=== PATIENT | female | born 2000 ===

== ENCOUNTER 2024-02-15 14:25 | Emergency (ER) | payer MEDICAID, SELFPAY ==
--- NOTE | 2024-02-15 14:51 | MHC.CARE ---
[facility] caponizer Philly called to report that they were sending a Pt into the [facility] Ed with the recommendation of [facility]. They reported Pt was assessed today and reported she intentionally overdosed on 4 pills of an unknown anti depressant that are prescribed to her mother 2-3 days ago. Pt did not report this overdose until today. Pt reported feeling depressed and hopeless. She stated that she is having thoughts to jump off a bridge and is self harming by carving her partners name into her skin. Pt has 2 prior suicide attempts per [facility] clinician however details are unknown. [facility]'s original disposition was [facility] level of care however they did not have beds and did not feel safe with Pt returning home. They will be sending an assessment over with [facility] as disposition.
[2024-02-15 15:03] VITALS: BP 130/82; O2SAT 96
[2024-02-15 15:04] VITALS: BMI 20.6
--- NOTE | 2024-02-15 15:12 | ECG_ITS ---
Test Reason : check qtc Blood Pressure : / mmHG Vent. Rate : 078 BPM Atrial Rate : 078 BPM P-R Int : 150 ms QRS Dur : 084 ms QT Int : 368 ms P-R-T Axes : 074 050 050 degrees QTc Int : 419 ms Normal sinus rhythm Normal ECG No previous ECGs available Referred By: Arcelia Okeefe Electronically Signed By:QUINTIN ARGUETA
[2024-02-15 15:54] VITALS: BP 105/65; PULSE 85; RESP 16; TEMP 37; O2SAT 97
[2024-02-15 16:02] LABS: Anion Gap 10 (12-20); Blood Urea Nitrogen 8 mg/dL (9-16); Calcium 9.1 mg/dL (8.4-10.2); Carbon Dioxide 28 mmol/L (22-29); Chloride 109 mmol/L (96-108); Creatinine Clr Calc Pharmacy 103.1; Estimated Glomerular Filt Rate > 60; Ethanol < 10 mg/dL; Glucose Random 98 mg/dL (60-115); Potassium 3.2 mmol/L (3.3-5.1); Sodium 144 mmol/L (135-145)
[2024-02-15 16:06] LABS: HCG Quantitative < 2 mIU/mL
--- NOTE | 2024-02-15 16:25 | ED.PSYCH ---
HPI - Psych General Chief Complaint: Psychiatric Symptoms Stated Complaint: SI BHN SELF HARM Time Seen by Provider: 02/15/24 14:59 Source: patient Mode of arrival: ambulatory Limitations: no limitations History of Present Illness ED Provider: DR. Blake HPI Narrative: 24 year old female brought in by ambulance feeling stressed and depressed, patient stated that she has suicidal thoughts, patient admitted to drinking alcohol in the morning, patient stated that her depression is related to stressful life, job, financial, housing situation,etc.. Patient declined any overdose attempt today, hospitalization for mental issue in the past. Related Data Allergies Allergy/AdvReac Type Severity Reaction Status Date / Time No Known Allergies Allergy Verified 02/15/24 15:06 Review of Systems Review of Systems: All other systems are reviewed and are negative Constitutional: Reports as per HPI and Reports no additional constitutional complaints Eyes: Reports as per HPI and Reports no additional eye complaints Reports system reviewed and no additional complaints, except as documented Cardiovascular: Reports as per HPI and Reports no additional cardiovascular complaints Respiratory: Reports as per HPI and Reports no additional respiratory complaints Gastrointestinal: Reports as per HPI and Reports no additional gastrointestinal complaints Genitourinary: Reports no additional female genitourinary complaints Musculoskeletal: Reports no additional musculoskeletal complaints Skin/Breast: Reports system reviewed and no additional complaints, except as docu Psychiatric: Reports no additional psychiatric complaints Endocrine: Reports no additional endocrine complaints Hematologic/Lymphatic: Reports no additional hematologic/lymphatic complaints Allergic/Immunologic: Reports no additional allergic/immunologic complaints Reports system reviewed and no additional complaints, except as documented and Reports Abnormal speech present [facility] Social History Social History Advance Directives: No Advance Directives Information Provided: Yes Do you have a plan to hurt others: No Plan Physical Exam Vital Signs: Vital Signs: Last Vital Signs Temp 98.6 F 02/15/24 15:54 Pulse 85 02/15/24 15:54 Resp 16 02/15/24 15:54 BP 105/65 02/15/24 15:54 Pulse Ox 97 02/15/24 15:54 O2 Del Method Room Air 02/15/24 15:54 BMI result Body Mass Index 20.6 Vital signs have been reviewed and appear to be correct. Blood pressure elevated. Heart rate normal. Respiratory rate normal. Temperature normal. Oxygen saturation normal. Appearance: Alert. Oriented X3. No acute distress. Head: Normal external exam. Normocephalic. Atraumatic. No Parker signs noted. No raccoon eyes noted Eyes: PERRLA. EOMI. Conjunctiva and sclera normal. Eyelids normal. ENT: TM's Normal. Pharynx normal. Uvula midline. Moist mucous membranes. No trismus noted. No drooling noted. No muffled voice noted. Neck: Normal inspection. Neck supple. FROM. No adenopathy. Thyroid Normal. No meningeal signs. No neck mass noted. CVS: Normal heart rate and rhythm. Heart sound normal. No murmurs noted. Pulses normal throughout. Respiratory: No respiratory distress. Painless inspiration. Breath sounds normal. No wheezes/rales/rhonchi noted. Chest nontender. No accessory muscle usage noted or decreased air movement noted. Abdomen: Soft and nontender. Bowel sounds normal in all 4 quadrants. No distention noted. No organomegaly noted. No visible injury noted. Back: No CVA tenderness. Full range of motion noted. Skin: Skin warm and dry. Normal skin color. Normal skin turgor. No rashes/lesions/lacerations noted. Extremities: No lower extremity edema. Extremities exhibit normal range of motion. Extremities nontender. Neuro: Oriented X 3. Cranial nerve exam: II-XII are grossly intact No motor deficit. No sensory deficit. Reflexes normal. Patient Orientation: Person, Place, Time and Situation, okay hygiene and grooming. Fair eye contact, attentive, no tics or tremors. Level of Consciousness: Awake, Appropriate and Alert Patient Behavior: Appropriate, Guarded, Cooperative and Anxious Mood Description: Constricted, Blunted and Apprehensive Affect Description: Constricted, Blunted and Apprehensive Patient Cognition Impaired: No Ability to Follow Directions: Excellent Speech Pattern: Clear, Appropriate and Spontaneous Speech, nonpressured, spontaneous with regular rate and rhythm, normal volume and prosody. No dysarthria. Memory Description: Intact, Immediate Intact and Short Term Intact Hallucinations: None Delusions: Not Present Thought Process: Intact Thought Content: positive for Intact, positive for Logical, presence of Suicidal Ideation and denies Homicidal Ideation. Depressive Symptoms: Not present. Judgement and Insight: Limited but adequate. Course Reevaluation(s) Reevaluation #1: 24 YO female presented with suicidal thoughts due to depression and stress, labs show hypokalemia will replete potassium, patient will be medically cleared start physician observation for further psych evaluation. Time: 17:00 Medical Decision Making Differential Diagnosis Differential Diagnoses: The differential diagnosis associated with the presentation includes (Electrolyte derangement, hypokalemia, SI, HI, hallucination, substance abuse.) Admission/Observation Consideration of admission/observation: Escalation of care including admission/observation considered Lab Data MDM Lab Attestation statement: I reviewed the patient's lab results. 02/15/24 15:35 Labs: Lab Results 02/15/24 Range/Units 15:35 Sodium 144 (135-145) mmol/L Potassium 3.2 L (3.3-5.1) mmol/L Chloride 109 H (96-108) mmol/L Carbon Dioxide 28 (22-29) mmol/L Anion Gap 10 L (12-20) BUN 8 L (9-16) mg/dL Creatinine 0.71 (0.5-1.4) mg/dL Estim Creat Clear Calc 103.1 Estimated GFR > 60 Random Glucose 98 (60-115) mg/dL Calcium 9.1 (8.4-10.2) mg/dL Beta HCG, Quant < 2 mIU/mL Ethyl Alcohol < 10 mg/dL Discharge Plan Discharge Clinical Impression: Depression Patient Disposition: Still a Patient Print Language: Faroese
[2024-02-15 16:47] LABS: Salicylate < 5.0 mg/dL (15-30)
[2024-02-15 17:10] LABS: Amphetamine Screen Urine Not Detected (Not Detect); Barbiturates, Urine Not Detected (Not Detect); Benzodiazepines Screen Urine Not Detected (Not Detect); Buprenorphine Scr Not Detected (Not Detect); Cannabinoid Screen Urine Not Detected (Not Detect); Cocaine Screen Urine Not Detected (Not Detect); Fentanyl, urine Not Detected (Not Detect); Methadone Screen, Urine Not Detected (Not Detect); Opiate Screen Urine Not Detected (Not Detect); Oxycodone Screen Urine Not Detected (Not Detect); Phencyclidine Screen Urine Not Detected (Not Detect)
[2024-02-15 17:15] LABS: Appearance Urine Cloudy; Color Urine Yellow; Glucose Urine UA Negative (Negative); Leukocyte Esterase Urine Negative (Negative); Nitrite Urine Negative (Negative); Specific Gravity - Urine >= 1.030 (1.005-1.025); Urine Blood Negative (Negative); Urine Ketones Trace mg/dL (Negative); Urine Protein Negative (Neg-Trace)
[2024-02-15 17:16] LABS: UPreg QC Valid YES; Urine Pregnancy NEGATIVE (NEGATIVE)
[2024-02-15] MEDS: Potassium Chloride Packet 20 MEQ PACKET 40 MEQ PO (19:30)
--- NOTE | 2024-02-15 20:00 | MHC.EDTECH ---
belongings in closet floor
[2024-02-15 20:52] VITALS: BP 130/83; PULSE 66; RESP 16; TEMP 37.1; O2SAT 100
[2024-02-16 06:00] VITALS: BP 120/81; PULSE 82; RESP 16; TEMP 36.5; O2SAT 100
--- NOTE | 2024-02-16 06:35 | PC.NURSE ---
pt sitting on the edge of her bed, do i really have to stay here for the 3 days redirected back to bed, inform her care team would be by to speak with her. no other concerns at this time. pt did rest comfortably throughout the night. sitter at bedside
[2024-02-16] MEDS: Potassium Chloride Packet 20 MEQ PACKET 40 MEQ PO (07:53)
--- NOTE | 2024-02-16 08:35 | PC.NURSE ---
patient visitor brought in bag and clothes, along with outside food. patient visitor educated on safety of unit and patient and why this is not allowed. patient visitor became verbally upset with RN, security notified. security at bedside collected outside food and belongings per policy. patient visitor then became verbally aggressive with another patient nearby. propellant charge zone assembler aware, security aware.
[2024-02-16 08:45] LABS: Basophils Absolute Auto 0.1 X10*3/uL (0.0-0.2); Basophils Percent Auto 0.9 % (0-2); Eosinophils Absolute Auto 0.1 X10*3/uL (0.0-0.4); Eosinophils Percent Auto 1.5 % (0-4); Hematocrit 36.8 % (37.0-47.0); Imm Gran Abs Auto 0.01 X10*3/uL (0.00-0.03); Imm Gran Pct Auto 0.1 % (0.0-0.4); Lymphocytes Absolute Auto 1.7 X10*3/uL (1.2-4.9); Lymphocytes Percent Auto 24.3 % (20-40); MANUAL DIFF FLAG SCAN; Mean Corpuscular HGB Conc 32.6 g/dl (31.0-35.0); Mean Corpuscular Hemoglobin 28.2 pg (27.0-33.0); Mean Corpuscular Volume 86.4 fL (80.0-98.0); Monocytes Absolute Auto 0.8 X10*3/uL (0.1-1.2); Monocytes Percent Auto 11.6 % (2-11); Neutrophils Absolute Auto 4.2 x10*3/uL (2.0-8.3); Neutrophils Percent Auto 61.6 % (45-73); PLT CLUMP 1; Red Blood Count 4.26 X10*6/uL (4.20-5.50); SCAN SMEAR FLAG 1
[2024-02-16 08:46] LABS: White Blood Count 6.9 X10*3/uL (4.8-10.8)
--- NOTE | 2024-02-16 09:00 | PHA.MEDREC ---
Addendum entered by Giacomo Sosa 02/16/24 10:30: reviewed Original Note: Pharmacy Consult ? Medication Reconciliation Pharmacy has reviewed the medication reconciliation done by nurse. patient states she is nit taking ant medication.
[2024-02-16 09:16] LABS: SLIDE REVIEW VERIFIED
--- NOTE | 2024-02-16 14:18 | MHC.CARE ---
Patient evaluated by the CARE Team, she does not require an inpatient psychiatric admission at this time. She will be referred to [facility] and outpatient services, will discharge when her partner arrives in the early evening. ED provider, Dr. Emmett francis.
[2024-02-16 18:26] VITALS: BP 120/81; PULSE 82; RESP 16; TEMP 36.5; O2SAT 100
== END 2024-02-16 18:31 | disposition home or self-care (01) ==
PROVIDERS: Emergency Medicine; Physician Assistant; Emergency Provider Emergency Medicine
DX: F33.1 Major depressive disorder, recurrent, moderate (principal); R45.851 Suicidal ideations; E87.6 Hypokalemia; R94.31 Abnormal electrocardiogram [ECG] [EKG]; Z59.9 Problem related to housing and economic circumstances, unspecified; Z56.3 Stressful work schedule; Z51.81 Encounter for therapeutic drug level monitoring
CPT/HCPCS: 36415; 80048; 80179; 80307; 81003; 81025; 84702; 85025; 93005; 99285; S9485

== ENCOUNTER → 2024-02-15 15:12 | Outpatient (BNV) | payer MEDICAID, SELFPAY | PROVIDERS: Emergency Provider Emergency Medicine; Visit Provider Internal Medicine | DX: Z51.81 Encounter for therapeutic drug level monitoring (principal) | CPT/HCPCS: 93010 ==